=== PATIENT | female | born 1990 | race Caucasian/White ===

== ENCOUNTER 2016-11-22 18:29 | Emergency (ER) | payer SELFPAY ==
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
[2016-11-22 20:49] VITALS: BP 130/70
== END 2016-11-22 20:42 | disposition home or self-care (01) ==
LOC: UCEAST 18:29
DX: S06.0X0A Concussion without loss of consciousness, initial encounter (principal); W54.1XXA Struck by dog, initial encounter; Y93.89 Activity, other specified; Z86.69 Personal history of other diseases of the nervous system and sense organs
CPT/HCPCS: 70450; 99211; G0463